=== PATIENT | female | born 1965 ===

== ENCOUNTER 2017-11-08 10:36 | Emergency (ER) | payer MEDICAID, OTHER ==
[2017-11-08 10:52] VITALS: TEMP 98.8
[2017-11-08] MEDS ORDERED: Iohexol 240 (50 ml) PO ONE (11:33)
[2017-11-08] MEDS ORDERED: Iohexol 240 (50 ml) ONE (11:52)
[2017-11-08 11:57] LABS: BASO % 0.6 % (0.0-2.0); EOS # 0.1 K/uL (0.0-0.7); EOS % 2.1 % (0.0-4.0); HEMOGLOBIN 12.6 g/dL (12.0-16.0); LYMPH # 1.5 K/uL (1.0-4.3); LYMPH % 24.1 % (20.0-40.0); MEAN CORPUSCULAR HEMOGLOBIN 28.7 pg (27.0-31.0); MEAN CORPUSCULAR HGB CONC 32.7 g/dL (33.0-37.0); MEAN PLATELET VOLUME 9.1 fl (7.2-11.7); MONO # 0.7 K/uL (0.0-0.8); MONO % 11.1 % (0.0-10.0); NEUT # 3.7 K/uL (1.8-7.0); NEUT % 62.1 % (50.0-75.0); RBC 4.39 Mil/uL (3.80-5.20); RED CELL DISTRIBUTION WIDTH 13.5 % (11.5-14.5)
[2017-11-08 12:00] LABS: SQUAMOUS EPITHIAL 10 /hpf (0-5); URINE BACTERIA FEW (<OCC); URINE BILIRUBIN NEGATIVE (NEGATIVE); URINE BLOOD SMALL (NEGATIVE); URINE CLARITY CLOUDY (Clear); URINE COLOR YELLOW (YELLOW); URINE GLUCOSE (UA) NEG (Normal); URINE LEUKOCYTE ESTERASE NEG Leu/uL (Negative); URINE PROTEIN NEGATIVE (NEGATIVE); URINE UROBILINOGEN 0.2-1.0 mg/dL (0.2-1.0)
--- NOTE | 2017-11-08 12:12 | ED PDOC ---
HPI: Abdomen Time Seen by Provider: 11/08/17 11:05 Chief Complaint (Nursing): Abdominal Pain Chief Complaint (Provider): Abdominal pain History Per: Patient History/Exam Limitations: no limitations Onset/Duration Of Symptoms: Days (since last night) Current Symptoms Are (Timing): Still Present Associated Symptoms: Back Pain. denies: Fever, Chills, Nausea, Vomiting, Diarrhea, Constipation, Urinary Symptoms Additional Complaint(s): Yolis Johnson is a 52 year old female, with a past medical history of gastritis, psoriasis and rheumatoid gastritis, who presents to the emergency department complaining of lower abdominal pain onset since last night. Patient states pain radiates to the back bilaterally. She took Tylenol last night with minimal improvement. Patient has a history of constipation but states pain feels different, last bowel movement was yesterday which was normal. She had an endoscopy done last week and was diagnosed with gastritis. She denies any fever , chills, nausea, vomit, diarrhea, urinary symptoms, or recent travel. No further medical complaints. PMD: Dr. Merino Past Medical History Reviewed: Historical Data, Nursing Documentation, Vital Signs Vital Signs: Last Vital Signs Temp 98.8 F 11/08/17 17:01 Pulse 78 11/08/17 17:01 Resp 18 11/08/17 17:01 BP 114/78 11/08/17 17:01 Pulse Ox 100 11/08/17 17:01 - Medical History PMH: Gastritis, HTN, Hypothyroidism, Rheumatoid Arthritis Denies: Chronic Kidney Disease Other PMH: psoriasis - Surgical History Other surgeries: ectopic x2 - Family History Family History: States: Unknown Family Hx - Social History Current smoker - smoking cessation education provided: No Alcohol: None Drugs: Denies - Home Medications Home Medications: Ambulatory Orders Medication Instructions Recorded traMADol [Ultram] 50 mg PO Q6H PRN 05/11/15 Azithromycin [Zithromax] 250 mg PO DAILY #4 tab 05/31/16 Loratadine [Claritin] 10 mg PO DAILY #10 tab 05/31/16 Prednisone [Deltasone] 40 mg PO DAILY #6 tablet 05/31/16 Meloxicam [Mobic] 15 mg PO DAILY #14 tab 11/08/17 Nitrofurantoin Macrocrystals 100 mg PO BID #14 cap 11/08/17 [Macrobid] - Allergies Allergies/Adverse Reactions: Allergies Allergy/AdvReac Type Severity Reaction Status Date / Time No Known Allergies Allergy Verified 04/04/15 10:53 Review of Systems ROS Statement: Except As Marked, All Systems Reviewed And Found Negative Constitutional: Negative for: Fever, Chills Gastrointestinal: Positive for: Abdominal Pain (lower). Negative for: Nausea, Vomiting, Diarrhea Genitourinary Female: Negative for: Dysuria, Frequency, Hematuria Musculoskeletal: Positive for: Back Pain Physical Exam - Reviewed Nursing Documentation Reviewed: Yes Vital Signs Reviewed: Yes - Physical Exam Comments: GENERAL APPEARANCE: Patient is awake, alert, oriented x 3, in no acute distress. SKIN: Warm, dry; (-) cyanosis. EYES: (-) conjunctival pallor, (-) scleral icterus. ENMT: Mucous membranes moist. Airway patent, (-) stridor. NECK: Supple, FROM (-) tenderness, (-) stiffness, (-) lymphadenopathy. CHEST AND RESPIRATORY: (-) rales, (-) rhonchi, (-) wheezes; breath sounds equal bilaterally. Speaking in full sentences, respirations even and nonlabored. HEART AND CARDIOVASCULAR: (-) irregularity; (-) murmur, (-) gallop. ABDOMEN AND GI: (-) distention. Bowel sounds active x4; [+] diffuse lower abdominal tenderness. (-) guarding, (-) rebound, (-) palpable masses, (-) CVA tenderness. EXTREMITIES: (-) deformity, (-) edema, (+) distal pulses. NEURO AND PSYCH: Mental status as above; (-) focal findings. Speech clear, gait steady. (-) facial asymmetry (-) aphasia. - Laboratory Results Result Diagrams: 11/08/17 11:40 11/08/17 11:40 Urine POC: Negative - ECG O2 Sat by Pulse Oximetry: 97 (RA) Pulse Ox Interpretation: Normal Medical Decision Making Medical Decision Making: Time: 11:05 Initial Impression: abdominal pain Initial Plan: --Abd Pelvis PO & IV Contrast [CT] --CMP --Lipase --Urine --CBC w/ differential --Bentyl 20 mg PO --Colace 100 mg PO --Omnipaque 240 50 ml PO --Toradol 30 mg IVP --Urine culture --Urinalysis --Reevaluation 1310 Labs reviewed, (+) hematuria CBC and CMP unremarkable. H&H stable. Upreg(-) [address] scan. 1600 PROCEDURE: CT Abdomen and Pelvis with contrast HISTORY: Right lower quadrant and left lower quadrant pain Relevant surgical history: Right oophorectomy following ectopic COMPARISON: None. TECHNIQUE: Contrast dose: 98 cc Omnipaque 300. Radiation dose: Total exam DLP = 795.28 mGy-cm. This CT exam was performed using one or more of the following dose reduction techniques: Automated exposure control, adjustment of the mA and/or kV according to patient size, and/or use of iterative reconstruction technique. FINDINGS: LOWER THORAX: Moderate-sized hiatal hernia. LIVER: Hepatic steatosis. No focal masses. No intrahepatic bile duct dilatation or perihepatic ascites. GALLBLADDER AND BILE DUCTS: Unremarkable. PANCREAS: Unremarkable. No gross lesion or ductal dilatation. SPLEEN: Unremarkable. ADRENALS: Unremarkable. No mass. KIDNEYS AND URETERS: Unremarkable. No hydronephrosis. No solid mass. VASCULATURE: Unremarkable. No aortic aneurysm. BOWEL: Unremarkable. No obstruction. No gross mural thickening. APPENDIX: Normal appendix. PERITONEUM: Unremarkable. No free fluid. No free air. LYMPH NODES: Unremarkable. No enlarged lymph nodes. BLADDER: Unremarkable. REPRODUCTIVE: Enlarged, anteverted and myomatous uterus. BONES: No acute fracture. OTHER FINDINGS: None. IMPRESSION: No significant or acute findings to account for/ related to the clinical presentation. Additional benign and/or incidental findings described above. Macrobid 100mg PO administered in light of hematuria. Possible early cystitis. Urine culture pending. On re-evaluation, patient reports resolution of symptoms. On exam, patient remains AAOx3, in no acute distress. Lungs clear to auscultation, cardiac RRR, abdomen soft, non-tender, repeat neuro exam shows no focal findings. VSS, stable for discharge. Lab/diagnostic results d/w the patient in great detail. Diagnosis of abdominal pain, possible UTI d/w the patient. Based on history, exam and diagnostic results, plan will be for outpatient follow up. Patient instructed to follow-up with pmd / referral provided / the clinic in 1- 2 days without fail. Advised to take medication as prescribed. Return to the emergency room at any time for any new or worsening symptoms. Patient states she fully agrees with and understands discharge instructions. States that she agrees with the plan and disposition. Verbalized and repeated discharge instructions and plan. I have given the patient opportunity to ask any additional questions. Scribe Attestation: Documented by Woody Hitchcock, acting as a scribe for Tiera Vega PA-C. Provider Scribe Attestation: All medical record entries made by the Scribe were at my direction and personally dictated by me. I have reviewed the chart and agree that the record accurately reflects my personal performance of the history, physical exam, medical decision making, and the department course for this patient. I have also personally directed, reviewed, and agree with the discharge instructions and disposition. Disposition - Clinical Impression Clinical Impression: Abdominal pain, Hematuria, Cystitis - Patient ED Disposition Is Patient to be Admitted: No Counseled Patient/Family Regarding: Studies Performed, Diagnosis, Need For Followup, Rx Given - Disposition Referrals: Manjeet Merino MD [Family Provider] - Disposition: Routine/Home Disposition Time: 16:04 Condition: STABLE Additional Instructions: FOLLOW UP WITH PMD IN 1-2 DAYS FOR FURTHER EVALUATION. RETURN TO ED WITH ANY NEW OR WORSENING SYMPTOMS. Prescriptions: Meloxicam [Mobic] 15 mg PO DAILY #14 tab Nitrofurantoin Macrocrystals [Macrobid] 100 mg PO BID #14 cap Instructions: Blood in the Urine (Hematuria) in Adults, Urinary Tract Infection , Adult (DC), Acute Abdomen (Belly Pain), Adult (DC), Acute Cystitis (DC) Forms: [employer] ([place]) Print Language: IVORIAN - POA Present On Arrival: None Results - Lab Results Lab Results: 11/08/17 11/08/17 11/08/17 11:40 11:40 11:40 WBC 6.0 RBC 4.39 Hgb 12.6 Hct 38.7 MCV 88.0 D MCH 28.7 MCHC 32.7 L RDW 13.5 Plt Count 219 MPV 9.1 Neut % (Auto) 62.1 Lymph % (Auto) 24.1 Eddy % (Auto) 11.1 H Eos % (Auto) 2.1 Baso % (Auto) 0.6 Neut # (Auto) 3.7 Lymph # (Auto) 1.5 Eddy # (Auto) 0.7 Eos # (Auto) 0.1 Baso # (Auto) 0.0 Sodium 140 Potassium 4.3 Chloride 104 Carbon Dioxide 24 Anion Gap 16 BUN 15 Creatinine 0.8 Est GFR ( Amer) > 60 Est GFR (Non-Af Amer) > 60 Random Glucose 89 Calcium 10.0 Total Bilirubin 1.1 AST 27 ALT 31 Alkaline Phosphatase 126 Total Protein 7.9 Albumin 4.1 Globulin 3.8 Albumin/Globulin Ratio 1.1 Lipase 164 Urine Color Yellow Urine Clarity Cloudy Urine pH 5.0 Ur Specific Cinebar 1.024 Urine Protein Negative Urine Glucose (UA) Neg Urine Ketones Negative Urine Blood Small Urine Nitrate Negative Urine Bilirubin Negative Urine Urobilinogen 0.2-1.0 Ur Leukocyte Esterase Neg Urine RBC (Auto) 11 H Urine Microscopic WBC 8 H Ur Squamous Epith Cells 10 H Urine Bacteria Few H
[2017-11-08 12:15] LABS: ALB/GLOB RATIO 1.1 (1.0-2.1); ALBUMIN 4.1 g/dL (3.5-5.0); ALT/SGPT 31 U/L (9-52); AST/SGOT 27 U/L (14-36); BLOOD UREA NITROGEN 15 mg/dl (7-17); GFR AFRICAN-AMERICAN > 60; GFR NON-AFRICAN AMERICAN > 60; LIPASE 164 U/L (23-300)
[2017-11-08] MEDS ORDERED: Sodium Chloride 0.9% 100 ML ONE (14:39)
[2017-11-08] MEDS ORDERED: Iohexol 300 100 ML IJ ONE (14:39)
--- NOTE | 2017-11-08 15:53 | CT ---
PROCEDURE: CT Abdomen and Pelvis with contrast HISTORY: Right lower quadrant and left lower quadrant pain Relevant surgical history: Right oophorectomy following ectopic COMPARISON: None. TECHNIQUE: Contrast dose: 98 cc Omnipaque 300. Radiation dose: Total exam DLP = 795.28 mGy-cm. This CT exam was performed using one or more of the following dose reduction techniques: Automated exposure control, adjustment of the mA and/or kV according to patient size, and/or use of iterative reconstruction technique. FINDINGS: LOWER THORAX: Moderate-sized hiatal hernia. LIVER: Hepatic steatosis. No focal masses. No intrahepatic bile duct dilatation or perihepatic ascites. GALLBLADDER AND BILE DUCTS: Unremarkable. PANCREAS: Unremarkable. No gross lesion or ductal dilatation. SPLEEN: Unremarkable. ADRENALS: Unremarkable. No mass. KIDNEYS AND URETERS: Unremarkable. No hydronephrosis. No solid mass. VASCULATURE: Unremarkable. No aortic aneurysm. BOWEL: Unremarkable. No obstruction. No gross mural thickening. APPENDIX: Normal appendix. PERITONEUM: Unremarkable. No free fluid. No free air. LYMPH NODES: Unremarkable. No enlarged lymph nodes. BLADDER: Unremarkable. REPRODUCTIVE: Enlarged, anteverted and myomatous uterus. BONES: No acute fracture. OTHER FINDINGS: None. IMPRESSION: No significant or acute findings to account for/ related to the clinical presentation. Additional benign and/or incidental findings described above.
[2017-11-08 17:02] VITALS: BP 114/78; PULSE 78; RESP 18
[2017-11-11 15:36] VITALS: O2SAT 97
== END 2017-11-08 16:25 | disposition home or self-care (01) ==
LOC: H.ER 10:36
DX: R10.9 Unspecified abdominal pain (principal); N30.91 Cystitis, unspecified with hematuria; I10 Essential (primary) hypertension; E03.9 Hypothyroidism, unspecified; Z90.721 Acquired absence of ovaries, unilateral
CPT/HCPCS: 74177; 80053; 81003; 81025; 83690; 85025; 87086; 96374; 99285; J1885; Q9966; Q9967